=== PATIENT | female | born 1995 | race Hispanic/Latino ===

== ENCOUNTER 2021-09-20 18:25 | Observation (INO) | payer OTHER, SELFPAY ==
[2021-09-20] MEDS ORDERED: hydrALAZINE 20 MG/ML VIAL SLOW IVP PRN ×2 (19:11→20:17)
[2021-09-20 19:29] VITALS: BMI 25.7
[2021-09-20 19:48] LABS: Hemoglobin 10.2 g/dL (12.0-15.5); Mean Corpuscular Hemoglobin 25.3 pg (27.0-33.0); Mean Corpuscular Volume 79.2 fl (81.6-98.3); Mean Platelet Volume 10.1 fl (7.4-10.4); Platelet Count 234 10x3/uL (150-450); RBC Distribution Width 14.6 % (11.5-14.5); Red Blood Cell (RBC) Count 4.03 10x6/uL (3.90-5.03); White Blood Cell (WBC) Count 9.2 10x3/uL (3.5-10.5)
[2021-09-20 20:02] LABS: ALT (SGPT) Less than 6 U/L (8-55); AST (SGOT) 9 U/L (5-34); Albumin 3.8 g/dL (3.5-5.0); Alkaline Phosphatase 168 U/L (40-110); Anion Gap 13 mmol/L (10-20); BUN (Urea Nitrogen) 7 mg/dL (7.0-18.7); Bilirubin, Total 0.4 mg/dL (0.2-1.2); Calc. Creatinine Clearance 124 mL/min (70-130); Calcium 10.5 mg/dL (7.8-10.44); Carbon Dioxide 25 mmol/L (22-29); Chloride 102 mmol/L (98-107); Globulin 3.5 g/dL (2.4-3.5); Glucose 85 mg/dL (70-105); Potassium 3.9 mmol/L (3.5-5.1); Protein, Total 7.3 g/dL (6.0-8.3); Sodium 136 mmol/L (136-145)
[2021-09-20 20:07] LABS: Amphetamine Not Detected (NotDetected); Barbiturates Screen Not Detected (NotDetected); Benzodiazepine Screen Not Detected (NotDetected); Cocaine Metabolite Screen Not Detected (NotDetected); Methadone Not Detected (NotDetected); Methamphetamine Not Detected (NotDetected); Opiate Screen Not Detected (NotDetected); Oxycodone Screen Not Detected (NotDetected); Phencyclidine (PCP) Not Detected (NotDetected); THC/Cannabinoid Screen Not Detected (NotDetected); Tricyclic Screen Not Detected (NotDetected)
[2021-09-20 20:10] LABS: Creatinine, Urine 52.96 mg/dL (47-110)
[2021-09-20] MEDS ORDERED: Acetaminophen 500 MG TAB PO PRN (20:13)
[2021-09-20] MEDS ORDERED: Ondansetron PF 4 MG/2 ML Vial IVP PRN (20:17)
[2021-09-20 20:22] LABS: HIV (1/2) Antibody/Antigen Non-Reactive (NonReactive); HIV 1/2 INDEX 0.08 S/CO (<1.00); Hep B Surf Ag Non-Reactive S/CO (NonReactive)
[2021-09-20 20:23] LABS: Syphilis Antibody Nonreactive (Nonreactive); Syphilis Antibody Index 0.04 S/CO (<1.00 Non-Reactive)
[2021-09-20 20:24] LABS: HBSAg Index 0.16 S/CO (0-0.99)
[2021-09-20] MEDS: Betamet Acet/Betamet Na Ph 30 MG/5 ML VIAL IM SCH (20:44)
[2021-09-20] MEDS ORDERED: Morphine 4 MG/ML VIAL IM SCH (21:30)
[2021-09-20] MEDS ORDERED: Morphine 4 MG/ML VIAL SLOW IVP SCH (21:30)
[2021-09-20] MEDS: Promethazine HCl 25 MG/ML VIAL IM PRN (21:35)
[2021-09-21] MEDS ORDERED: Lactated Ringer's 500 ML IV SCH (06:30)
[2021-09-21] MEDS: Promethazine HCl 25 MG/ML VIAL IM PRN (07:34)
[2021-09-21 10:52] LABS: SARS-CoV-2 NAA Rapid Test Not Detected (NotDetected)
[2021-09-21] MEDS: Betamet Acet/Betamet Na Ph 30 MG/5 ML VIAL IM SCH (17:27)
[2021-09-21] MEDS ORDERED: Betamet Acet/Betamet Na Ph 30 MG/5 ML VIAL IM SCH (18:00)
== END 2021-09-21 17:35 | disposition home or self-care (01) ==
LOC: CSHLD/OP 18:25 → CSHLD 20:26
PROVIDERS: ADMIT Obstetrics & Gynecology; ATTEND Obstetrics & Gynecology
DX: O12.13 Gestational proteinuria, third trimester (principal); O99.891 Other specified diseases and conditions complicating pregnancy; R03.0 Elevated blood-pressure reading, without diagnosis of hypertension; R51.9 Headache, unspecified; O47.03 False labor before 37 completed weeks of gestation, third trimester; Z3A.34 34 weeks gestation of pregnancy; Z20.822 Contact with and (suspected) exposure to COVID-19
CPT/HCPCS: 36415; 76815; 80053; 80306; 82570; 84156; 85027; 86762; 86780; 86850; 86900; 86901; 87081; 87340; 87389; 96372; 99285; G0378; J0702; J2270; J2550; U0002

== ENCOUNTER 2021-09-25 18:40 | Observation (INO) | payer OTHER ==
[2021-09-25 19:01] VITALS: BMI 25.5
[2021-09-25] MEDS ORDERED: Promethazine HCl 25 MG/ML VIAL IM PRN (19:57)
[2021-09-25] MEDS ORDERED: hydrALAZINE 20 MG/ML VIAL SLOW IVP PRN (19:57)
[2021-09-25] MEDS ORDERED: Ondansetron PF 4 MG/2 ML Vial IVP PRN (19:57)
[2021-09-25] MEDS ORDERED: Acetaminophen 500 MG TAB PO PRN (19:57)
[2021-09-25] MEDS ORDERED: Metoclopramide HCl 10 MG/2 ML VIAL IVP SCH (20:15)
[2021-09-25] MEDS ORDERED: diphenhydrAMINE 50 MG/ML VIAL IVP SCH (20:15)
[2021-09-25 20:40] LABS: #Eosinphils 0.1 10x3/uL (0.0-0.5); #Monocytes 0.5 10x3/uL (0.0-1.1); #Neutrophils 7.8 10x3/uL (1.5-8.4); %Basophils 0.2 % (0.0-2.0); %Eosinophils 0.5 % (0.0-6.0); %Lymphocytes 24.5 % (18.0-47.0); %Monocytes 4.1 % (0.0-10.0); Hemoglobin 9.7 g/dL (12.0-15.5); Mean Corpuscular HGB CONC 31.6 g/dL (32.0-36.0); Mean Corpuscular Hemoglobin 25.1 pg (27.0-33.0); Mean Corpuscular Volume 79.3 fl (81.6-98.3); Mean Platelet Volume 10.8 fl (7.4-10.4); Platelet Count 229 10x3/uL (150-450); RBC Distribution Width 14.6 % (11.5-14.5); Red Blood Cell (RBC) Count 3.87 10x6/uL (3.90-5.03); White Blood Cell (WBC) Count 11.1 10x3/uL (3.5-10.5)
[2021-09-25 20:52] LABS: ALT (SGPT) Less than 6 U/L (8-55); AST (SGOT) 12 U/L (5-34); Alkaline Phosphatase 167 U/L (40-110); Anion Gap 14 mmol/L (10-20); BUN (Urea Nitrogen) 7 mg/dL (7.0-18.7); Bilirubin, Total 0.5 mg/dL (0.2-1.2); Calc. Creatinine Clearance 125 mL/min (70-130); Calcium 9.1 mg/dL (7.8-10.44); Carbon Dioxide 22 mmol/L (22-29); Chloride 104 mmol/L (98-107); Globulin 3.1 g/dL (2.4-3.5); Glucose 80 mg/dL (70-105); Potassium 3.3 mmol/L (3.5-5.1); Protein, Total 7.1 g/dL (6.0-8.3); Sodium 137 mmol/L (136-145)
[2021-09-25 21:04] LABS: Creatinine, Urine 137.46 mg/dL (47-110)
[2021-09-25 21:12] LABS: Hep B Surf Ag Non-Reactive S/CO (NonReactive); Syphilis Antibody Nonreactive (Nonreactive); Syphilis Antibody Index 0.04 S/CO (<1.00 Non-Reactive)
[2021-09-25 21:18] LABS: HBSAg Index 0.21 S/CO (0-0.99)
[2021-09-25 21:25] LABS: SARS-CoV-2 NAA Rapid Test Not Detected (NotDetected)
[2021-09-25] MEDS ORDERED: Lactated Ringer's 1,000 ML IV SCH (22:15)
== END 2021-09-26 01:09 | disposition home or self-care (01) ==
LOC: CSHLD/OP 18:40 → CSHLD 21:45
PROVIDERS: ADMIT Emergency Medicine; ATTEND Emergency Medicine
DX: O14.93 Unspecified pre-eclampsia, third trimester (principal); O13.3 Gestational [pregnancy-induced] hypertension without significant proteinuria, third trimester; O09.293 Supervision of pregnancy with other poor reproductive or obstetric history, third trimester; Z3A.35 35 weeks gestation of pregnancy; Z87.891 Personal history of nicotine dependence
CPT/HCPCS: 76819; 80053; 82570; 84156; 85025; 86780; 86850; 86900; 86901; 87081; 87340; 96374; 96375; G0378; J1200; J2765; U0002

== ENCOUNTER 2021-09-26 20:53 | Inpatient (IN) | payer OTHER ==
[2021-09-27] MEDS ORDERED: hydrALAZINE 20 MG/ML VIAL ONE (00:35)
[2021-09-27] MEDS ORDERED: Calcium Gluc 4.6 MEQ/10 ML (100 MG/ML) SLOW IVP PRN (00:43)
[2021-09-27] MEDS ORDERED: Promethazine HCl 25 MG/ML VIAL IM PRN ×2 (00:43→10:30)
[2021-09-27] MEDS ORDERED: hydrALAZINE 20 MG/ML VIAL SLOW IVP PRN (00:43)
[2021-09-27] MEDS ORDERED: Misoprostol 200 MCG TAB PR PRN (00:43)
[2021-09-27] MEDS ORDERED: HYDROcodone/Acetaminophen 5/325 mg Tablet PO PRN (00:43)
[2021-09-27] MEDS ORDERED: Lidocaine 1% (PF) 30 ML VIAL SC PRN (00:43)
[2021-09-27] MEDS ORDERED: Ondansetron PF 4 MG/2 ML Vial IVP PRN (00:43)
[2021-09-27] MEDS ORDERED: Carboprost 250 MCG/ML AMP IM PRN (00:43)
[2021-09-27] MEDS ORDERED: Ibuprofen 800 MG TAB PO PRN (00:43)
[2021-09-27] MEDS ORDERED: Magnesium Sulfate 20 GM/WATER 500 ML BAG IVPB SCH (00:45)
[2021-09-27] MEDS ORDERED: Magnesium Sulfate 20 gm/500 ml 20 GM/500 ML BAG ONE (00:46)
[2021-09-27] MEDS ORDERED: NS w/ Oxytocin 30 units 500 ML IV SCH ×2 (01:00)
[2021-09-27 01:06] VITALS: BMI 25.5
[2021-09-27] MEDS: Acetaminophen 500 MG TAB PO PRN ×2 (01:30→10:49)
[2021-09-27] MEDS ORDERED: Butorphanol Tartrate 1 MG/ML VIAL ONE (03:14)
[2021-09-27] MEDS ORDERED: Butorphanol Tartrate 1 MG/ML VIAL SLOW IVP SCH (03:15)
[2021-09-27] MEDS: Magnesium Sulfate 20 gm/500 ml 20 GM/500 ML BAG IVPB SCH ×2 (09:39→19:55)
[2021-09-27] MEDS ORDERED: Fentanyl 2 mcg/Bup 0.1% Cadd 100 ML ONE (10:06)
[2021-09-27] MEDS: Lactated Ringer's 1,000 ML IV SCH ×3 (10:12→17:28)
[2021-09-27] MEDS: Fentanyl 2 mcg/Bupivacaine 0.1% Cassette 100 ML EPIDURAL SCH ×2 (10:30→16:42)
[2021-09-27] MEDS ORDERED: Communication Order-Pharmacy FS PRN (10:30)
[2021-09-27] MEDS ORDERED: Hydrocerin (Eucerin) Cream 120 gm Jar TOP PRN (10:30)
[2021-09-27] MEDS ORDERED: diphenhydrAMINE 50 MG/ML VIAL IVP PRN (10:30)
[2021-09-27] MEDS ORDERED: Naloxone HCl 0.4 mg/ml Vial IVP PRN ×2 (10:30)
[2021-09-27] MEDS ORDERED: Lactated Ringer's 500 ML IV PRN (10:30)
[2021-09-27] MEDS ORDERED: ePHEDrine Sulfate 50 MG/10 ML VIAL SLOW IVP PRN (10:30)
[2021-09-27] MEDS: Misoprostol 100 MCG TAB VAG SCH ×2 (10:43→17:28)
[2021-09-27] MEDS: Ondansetron PF 4 MG/2 ML Vial IVP PRN ×2 (15:13→22:16)
[2021-09-27] MEDS: Acetaminophen 325 MG TAB PO PRN ×2 (16:51→22:52)
[2021-09-27] MEDS ORDERED: Calcium Carbonate 500 MG ChewTAB PO PRN (18:55)
[2021-09-27] MEDS ORDERED: Diphenoxylate HCl/Atropine Tablet PO SCH (22:45)
[2021-09-28] MEDS: Acetaminophen 325 MG TAB PO PRN ×2 (02:59→17:00)
[2021-09-28] MEDS ORDERED: Bisacodyl 10 MG SUPP PR PRN (03:00)
[2021-09-28] MEDS ORDERED: Milk Of Magnesia 30 ML UDCUP PO PRN (03:00)
[2021-09-28] MEDS ORDERED: Lanolin Ointment 7 GM TUBE TOP PRN (03:00)
[2021-09-28] MEDS: Ibuprofen 800 MG TAB PO SCH ×3 (04:51→21:24)
[2021-09-28] MEDS: Magnesium Sulfate 20 gm/500 ml 20 GM/500 ML BAG IVPB SCH (05:01)
[2021-09-28] MEDS ORDERED: Bupivacaine 0.25% HCL 30 ML VIAL ONE (08:00)
[2021-09-28] MEDS: Ferrous Sulfate 325 MG TAB PO SCH ×2 (11:18→17:01)
[2021-09-28] MEDS: Docusate 100 MG CAP PO SCH ×2 (11:57→21:24)
[2021-09-29] MEDS: Acetaminophen 325 MG TAB PO PRN ×2 (02:22→08:39)
[2021-09-29] MEDS: Ibuprofen 800 MG TAB PO SCH ×2 (05:39→13:51)
[2021-09-29] MEDS: Ferrous Sulfate 325 MG TAB PO SCH (08:35)
[2021-09-29] MEDS: Docusate 100 MG CAP PO SCH (08:35)
[2021-09-29] MEDS: Misoprostol 100 MCG TAB VAG SCH ×3 (08:41→09:59)
[2021-09-29] MEDS: Lactated Ringer's 1,000 ML IV SCH (08:41)
[2021-09-29] MEDS ORDERED: Measles/Mumps/Rubella 10 MCG/0.5 ML VIAL SC ONE (08:43)
[2021-09-29 09:56] VITALS: BP 121/77; TEMP 98
== END 2021-09-29 14:05 | disposition home or self-care (01) | DRG 807 ==
LOC: CSHLD/OP 20:53 → CSHLD 09-27 01:40 → CSHPP 09-28 13:30
PROVIDERS: ADMIT Emergency Medicine; ATTEND Emergency Medicine
PROC: 10E0XZZ Delivery of Products of Conception, External Approach (ICD-10-PCS; principal; 2021-09-27)
PROC: 0U7C7ZZ Dilation of Cervix, Via Natural or Artificial Opening (ICD-10-PCS; 2021-09-27)
PROC: 3E033VJ Introduction of Other Hormone into Peripheral Vein, Percutaneous Approach (ICD-10-PCS; 2021-09-27)
PROC: 10907ZC Drainage of Amniotic Fluid, Therapeutic from Products of Conception, Via Natural or Artificial Opening (ICD-10-PCS; 2021-09-27)
DX: O14.14 Severe pre-eclampsia complicating childbirth (principal); Z37.0 Single live birth; Z3A.35 35 weeks gestation of pregnancy; Z20.822 Contact with and (suspected) exposure to COVID-19; O76 Abnormality in fetal heart rate and rhythm complicating labor and delivery; N85.8 Other specified noninflammatory disorders of uterus; O34.03 Maternal care for unspecified congenital malformation of uterus, third trimester; O62.2 Other uterine inertia; Z79.899 Other long term (current) drug therapy
CPT/HCPCS: 36415; 51702; 76819; 80053; 82570; 83735; 84156; 85025; 86780; 86850; 86900; 86901; 87081; 87340; 88307; 90707; 96374; 96375; 99285; G0378; J0360; J0595; J1200; J2405; J2550; J2590; J2765; J3475; J3490; J7120; S0020; U0002